=== PATIENT | female | born 1985 | race Caucasian/White ===

== ENCOUNTER 2016-09-13 13:44 | Outpatient (CLI) | payer OTHER | END 2016-09-13 22:00 | disposition home or self-care (01) | LOC: MUS 13:44 | PROVIDERS: ATTEND Obstetrics & Gynecology | DX: O46.91 Antepartum hemorrhage, unspecified, first trimester (principal); Z3A.14 14 weeks gestation of pregnancy | CPT/HCPCS: 76817 ==